=== PATIENT | female | born 1935 | race Caucasian/White ===

== ENCOUNTER 2020-03-12 12:33 | Observation (INO) | payer MEDICARE ==
[2020-03-12] VITALS (8 sets, daily range): BP systolic 152–182; BP diastolic 60–90
[~2020-03-12] VITALS: Ht 162.5 cm; Wt 95.3 kg
--- NOTE | 2020-03-12 13:10 | NUR ---
PATIENT DENIES WOUNDS. A&OX4.
[2020-03-12 13:26] LABS: BASO % 0.5 % (0.0-1.0); EOS % 0.5 % (1.0-4.0); HEMATOCRIT 44.3 % (37.0-47.0); LYMPH # 1.2 10*3/uL (1.3-4.4); LYMPH % 13.9 % (27.0-41.0); MEAN CELL VOLUME 93.7 fl (81.0-99.0); MEAN CORPUSCULAR HGB 30.7 pg (27.0-31.0); MEAN CORPUSCULAR HGB CONC 32.7 g/dl (33.0-37.0); MEAN PLATELET VOLUME 10.6 fl (9.6-12.3); MONO # 0.5 10*3/uL (0.1-1.0); MONO % 5.9 % (3.0-9.0); NEUT # 6.9 10*3/uL (2.3-7.9); PLATELET COUNT AUTOMATED 253 10*3/uL (130-400); RED BLOOD COUNT 4.73 10*6/uL (4.10-5.10); RED CELL DISTRI WIDTH 13.5 % (0-14.5); WHITE BLOOD COUNT 8.7 10*3/uL (4.8-10.8)
[2020-03-12 13:41] LABS: ACT PARTIAL THROMBO TIME 29.9 SECONDS (20.0-32.1)
[2020-03-12 13:58] LABS: ALBUMIN 3.7 gm/dl (3.1-4.5); ALKALINE PHOSPHATASE 91 U/L (45-117); BUN 16 mg/dl (7-24); CHLORIDE 107 mmol/L (98-107); CREATININE 0.79 mg/dL (0.55-1.02); LIPASE 229 U/L (73-393); POTASSIUM 4.3 mmol/L (3.5-5.1); SGOT/AST 16 IU/L (3-35); SGPT/ALT 19 U/L (12-78); SODIUM 139 mmol/L (136-145); TOTAL PROTEIN 8.2 gm/dL (6.4-8.2); TROPONIN I < 0.015 ng/ml (<0.045)
--- NOTE | 2020-03-12 15:28 | NUR ---
PATIENT URINATED BUT LEFT SPECIMEN IN RESTROOM. SPECIMEN HAS BEEN PUT IN BIOHAZARD DUE TO THIS AND ANOTHER SPECIMEN BEING IN RESTROOM.
--- NOTE | 2020-03-12 15:28 | NUR ---
REPORT GIVEN TO HAO OLVERA AT THIS TIME.
[2020-03-12 16:43] LABS: BILIRUBIN NEGATIVE; BLOOD NEGATIVE (NEGATIVE); CLARITY CLEAR (CLEAR); COLOR YELLOW (YELLOW); GLUCOSE NEGATIVE; KETONE 1+; LEUKO ESTERASE TRACE (NEGATIVE); NITRITE NEGATIVE (NEGATIVE); UROBILINOGEN 0.2 E.U./dl (0.0-1.0)
[2020-03-12 16:44] LABS: BACTERIA TRACE; EPITHELIAL CELLS 0-2; RBC 0-2 rbc/hpf (0-2); WBC 0-2 wbc/hpf (0-5)
--- NOTE | 2020-03-12 17:49 | NUR ---
PT ASSISTED TO BATHROOM
--- NOTE | 2020-03-12 18:04 | NUR ---
SPOKE WITH SON FOR AN UPDATE HE HAD BEEN TOLD BY HIS MOTHER SHE WAS BEING ADMITTED.
--- NOTE | 2020-03-12 18:30 | NUR ---
A 84, admitted to 5E, under the services of LISANDRO Anderson DO with a diagnosis of HYPERTENSIVE EMERGENCY. Chief complaint is HIGH BP. Patient arrived via stretcher from ER. Monitor applied. Initial assessment completed. Vital signs taken and recorded. LISANDRO ANDERSON DO notified of admission to the unit. Orders received. See assessment for past medical history, medications and allergies. Patient and/or family oriented to unit. [facility] 5TH FLOOR visitation policy reviewed. Clothing/patient valuable form completed. TOAN TERRELL
[2020-03-12] MEDS ORDERED: VERAPAMIL HCL240 M1 PO (19:12)
[2020-03-12] MEDS ORDERED: LISINOPRIL20 MG PO (19:13)
--- NOTE | 2020-03-12 19:38 | NUR ---
NOTIFIED DR. PÉREZ PATIENTS MED REC IS UP TO DATE AND BP. ALSO PATIENT REQUESTING A DOSE OF ZYRTEC NOW. NOTIFIFED
--- NOTE | 2020-03-12 20:55 | NUR ---
NOTIFIED DR. HOROWITZ PATIENT IS CLAIMING HE FELL. HIT HIS RIGHT KNEE. PATIENT STILL HALLUCINATING AND PARANOID. PATIENT MOVED CLOSER TO THE DESK, 509. BED IN LOWEST POSITION,CALL LIGHT WITHIN REACH. BED RAILS UP X2 AND BED ALARM ON. WILL CONTINUE TO MONITOR.
--- NOTE | 2020-03-12 22:50 | NUR ---
24 HOUR CHART CHECK COMPLETE
--- NOTE | 2020-03-12 23:00 | NUR ---
PATIENT REPORT RECEIVED FROM TOAN PATTERSON RN AT THIS TIME. ASSUMED CARE OF PATIENT AT THIS TIME. PATIENT DENIES ANY PAIN OR DISCOMFORT AT THIS TIME. A&O X3, CALL LIGHT WITHIN REACH. WILL CONTINUE TO MONITOR.
[2020-03-13] VITALS: BP 170/82
--- NOTE | 2020-03-13 04:15 | NUR ---
PATIENT RESTING IN BED IN A POSITION OF COMFORT AT THIS TIME, NO SIGNS OR SYMPTOMS OF PAIN OR DISTRESS NOTED AT THIS TIME. RESPIRATIONS EASY AND NON-LABORED. CALL LIGHT WITHIN REACH, WILL CONTINUE TO MONITOR.
[2020-03-13 06:40] LABS: BASO % 0.5 % (0.0-1.0); EOS # 0.1 10*3/uL (0.0-0.4); EOS % 1.8 % (1.0-4.0); HEMATOCRIT 46.5 % (37.0-47.0); LYMPH # 1.5 10*3/uL (1.3-4.4); MEAN CORPUSCULAR HGB 30.2 pg (27.0-31.0); MEAN CORPUSCULAR HGB CONC 32.5 g/dl (33.0-37.0); MEAN PLATELET VOLUME 10.4 fl (9.6-12.3); MONO # 0.6 10*3/uL (0.1-1.0); MONO % 8.8 % (3.0-9.0); NEUT # 4.9 10*3/uL (2.3-7.9); NEUT % 67.8 % (47.0-73.0); PLATELET COUNT AUTOMATED 257 10*3/uL (130-400); RED CELL DISTRI WIDTH 13.4 % (0-14.5); WHITE BLOOD COUNT 7.3 10*3/uL (4.8-10.8)
[2020-03-13 06:58] LABS: ALBUMIN 3.6 gm/dl (3.1-4.5); ALKALINE PHOSPHATASE 94 U/L (45-117); BUN 13 mg/dl (7-24); CHLORIDE 106 mmol/L (98-107); CHOLESTEROL 207 mg/dL (<200); HDL CHOLESTEROL 44 mg/dl (40-60); LDL CHOLESTEROL 145 mg/dL (9-159); SGOT/AST 17 IU/L (3-35); SGPT/ALT 19 U/L (12-78); SODIUM 138 mmol/L (136-145); TRIGLYCERIDES 91 mg/dl (<150); VLDL CHOLESTEROL 18 mg/dL (6-40)
[2020-03-13 08:00] VITALS: BP 168/62
--- NOTE | 2020-03-13 08:00 | NUR ---
Neurological: awake,alert,oriented Respiratory: easy, regular,no distress Breath sounds: clear Cough: none Cardiovascular: hypertensive Gastrointestinal: soft Genito/Urinary: no problem Musculoskeketal: AMBULATORY PUPILS ARE DILATED BUT REACTIVE AMAN HINOJOSA
[2020-03-13 08:06] LABS: VITAMIN D, 25-HYDROXY 26.6 ng/mL (30-100)
--- NOTE | 2020-03-13 09:00 | NUR ---
Residential Care Facility Manager in to talk to patient. Patient states lives at home with alone. There are 27 steps in the home. Physician: mirela ortiz in [place] Pharm[facility]: [facility] Home health services: none Patient's level of ADLs: INDEPENDENT Patient has working utilities: all working DME: cane Follow-up physician's appointment after d/c[facility] Does patient want to access PORTAL?: no Discharge plan discussed with patient, she states she lives at home alone, is independent in adls and ambulation, drives, has a cane to use if needed. discussed with her a discharge plan and she stated she would be returning home and denies any home needs, discussed [facility] and educated her on the services they offer, she declined any home needs or home health at this time, case management will follow. VANESA VALERO
--- NOTE | 2020-03-13 10:56 | NUR ---
DR ROBERT NOTIFIED THAT PT IS REQUESTING SOMETHING TOPICAL FOR LEFT SHOULDER PAIN. NEW ORDERS RECEIVED. PT NOTIFIED AND IS CURRENTLY HAVING ECHO COMPLETED AT BEDSIDE. WILL MEIDCATE WITH TYLENOL AFTER ECHO IS COMPLETED.
--- NOTE | 2020-03-13 11:04 | NUR ---
Dr. COOPER consulted for CARDIAC. CALL OFFICE AND NOTIFIED OF CONSULT. AMAN HINOJOSA
--- NOTE | 2020-03-13 11:43 | NUR ---
PT GIVEN TYLENOL 650 MG PO AT THIS TIME FOR C/O LEFT SHOULDER PAIN. PHYSICIANS AWARE OF SHOULDER PAIN. WILL MONITOR FOR EFFECTIVENESS. CALL LIGHT IN REACH.
[2020-03-13 12:00] VITALS: BP 144/67
--- NOTE | 2020-03-13 12:42 | NUR ---
PT STATES THAT TYLENOL IS EFFECTIVE FOR SHOULDER PAIN.
[2020-03-13 16:00] VITALS: BP 127/50
--- NOTE | 2020-03-13 18:00 | NUR ---
PT SITTING UP IN BED, EATING DINNER. NO S/S OF DISTRESS NOTED. RESPIRATIONS UNLABORED ON ROOM AIR. ALL NEEDS ARE CURRENTLY MET. PT GIVEN PRUNE JUICE FOR HER REQUEST TO ASSIST IN HAVING A BOWEL MOVEMENT, SHE USUALLY HAS A BOWEL MOVEMENT DAILY. WILL MONITOR. CALL LIGHT IN REACH.
[2020-03-13 20:00] VITALS: BP 126/58
[2020-03-14] VITALS: BP 122/45
--- NOTE | 2020-03-14 03:07 | NUR ---
24 HOUR CHART CHECK COMPLETE
[2020-03-14 06:27] LABS: CHLORIDE 103 mmol/L (98-107); POTASSIUM 4.6 mmol/L (3.5-5.1); SODIUM 135 mmol/L (136-145)
[2020-03-14 06:33] LABS: BUN 27 mg/dl (7-24)
--- NOTE | 2020-03-14 07:30 | NUR ---
TOOK OVER CARE OF PT AT THIS TIME. PT RESTING IN BED. RESPIRATIONS UNLABORED ON ROOM AIR. NO S/S OF DISTRESS NOTED. CALL LIGHT IN REACH.
[2020-03-14 08:00] VITALS: BP 137/61
--- NOTE | 2020-03-14 08:09 | NUR ---
PT OFF OF FLOOR AT THIS TIME FOR RENAL ULTRASOUND.
--- NOTE | 2020-03-14 10:14 | NUR ---
NOTIFIED DR CHEN THAT PT WOULD LIKE TO SHOWER. ORDERS RECEIVED TO D/C HEART MONTIOR AND PHYSICIAN STATES THAT IT IS OKAY FOR PT TO SHOWER.
[2020-03-14 12:00] VITALS: BP 159/75
[2020-03-14] MEDS ORDERED: AMLODIPINE BESYL5 MG PO (13:25)
--- NOTE | 2020-03-14 14:05 | NUR ---
Discharge instructions reviewed with patient/family. Patient receptive and verbalizes understanding. Follow-up care arranged. Written instructions given to patient/family. KRISTAL BOGGS
--- NOTE | 2020-03-14 14:15 | NUR ---
PT LEAVES FACILITY AT THIS TIME VIA W/C TO SON'S CAR. PT TO COMMERCIAL LITIGATION PARALEGAL MEDICATION IN OUTPATIENT PHARMACY.
== END 2020-03-14 14:15 | disposition home or self-care (01) ==
LOC: ED → EDHOLD 16:10 → 5E 17:21
PROVIDERS: Emergency Medicine; Hospitalist; Internal Medicine; ADMIT Internal Medicine; ATTEND Internal Medicine
DX: I16.1 Hypertensive emergency (principal); I10 Essential (primary) hypertension; R51 Headache; J01.10 Acute frontal sinusitis, unspecified; R79.82 Elevated C-reactive protein (CRP); E78.5 Hyperlipidemia, unspecified; E55.9 Vitamin D deficiency, unspecified; E66.9 Obesity, unspecified

== ENCOUNTER → 2020-11-26 | Outpatient (CLI) | payer MEDICARE, OTHER ==
[~2020-11-26] MED LIST: AMLODIPINE BESYL5 MG PO; LISINOPRIL20 MG PO; VERAPAMIL HCL240 M1 PO
[2020-11-26 08:23] LABS: HEMATOCRIT 46.7 % (37.0-47.0); MEAN CELL VOLUME 94.3 fl (81.0-99.0); MEAN CORPUSCULAR HGB 30.7 pg (27.0-31.0); MEAN CORPUSCULAR HGB CONC 32.5 g/dl (33.0-37.0); MEAN PLATELET VOLUME 10.8 fl (9.6-12.3); RED BLOOD COUNT 4.95 10*6/uL (4.10-5.10); WHITE BLOOD COUNT 7.9 10*3/uL (4.8-10.8)
[2020-11-26 08:39] LABS: ALBUMIN 3.6 gm/dl (3.1-4.5); ALKALINE PHOSPHATASE 93 U/L (45-117); BUN 18 mg/dl (7-24); CHLORIDE 107 mmol/L (98-107); CHOLESTEROL 200 mg/dL (<200); FREE T4 1.22 ng/dl (0.76-1.46); LDL CHOLESTEROL 133 mg/dL (9-159); POTASSIUM 4.4 mmol/L (3.5-5.1); SGOT/AST 20 IU/L (3-35); SGPT/ALT 24 U/L (12-78); SODIUM 139 mmol/L (136-145); TOTAL PROTEIN 8.2 gm/dL (6.4-8.2); TRIGLYCERIDES 116 mg/dl (<150)
[2020-11-26 09:17] LABS: VITAMIN D, 25-HYDROXY 49.3 ng/mL (30-100)
== END | disposition home or self-care (01) ==
LOC: LAB 07:44
PROVIDERS: ATTEND Family Medicine
DX: I10 Essential (primary) hypertension (principal); E78.00 Pure hypercholesterolemia, unspecified; R53.83 Other fatigue; E55.9 Vitamin D deficiency, unspecified; J32.9 Chronic sinusitis, unspecified

== ENCOUNTER 2021-01-28 13:48 | Emergency (ER) | payer MEDICARE, OTHER ==
[~2021-01-28] VITALS: Ht 149.8 cm; Wt 90.7 kg
[2021-01-28 14:35] LABS: BASO % 0.3 % (0.0-1.0); EOS % 0.2 % (1.0-4.0); HEMATOCRIT 43.8 % (37.0-47.0); LYMPH # 1.3 10*3/uL (1.3-4.4); LYMPH % 15.1 % (27.0-41.0); MEAN CORPUSCULAR HGB 30.4 pg (27.0-31.0); MEAN CORPUSCULAR HGB CONC 32.6 g/dl (33.0-37.0); MEAN PLATELET VOLUME 10.6 fl (9.6-12.3); MONO # 0.5 10*3/uL (0.1-1.0); MONO % 6.1 % (3.0-9.0); NEUT # 6.8 10*3/uL (2.3-7.9); PLATELET COUNT AUTOMATED 265 10*3/uL (130-400); RED BLOOD COUNT 4.71 10*6/uL (4.10-5.10); RED CELL DISTRI WIDTH 13.3 % (0-14.5); WHITE BLOOD COUNT 8.7 10*3/uL (4.8-10.8)
[2021-01-28 14:52] LABS: BUN 17 mg/dl (7-24); CHLORIDE 105 mmol/L (98-107); CREATININE 0.89 mg/dL (0.55-1.02); POTASSIUM 3.8 mmol/L (3.5-5.1); SODIUM 131 mmol/L (136-145)
[2021-01-28 14:53] LABS: TROPONIN I < 0.015 ng/ml (<0.045)
== END 2021-01-28 15:12 | disposition home or self-care (01) ==
LOC: ED 13:48
PROVIDERS: Emergency Medicine
DX: R20.2 Paresthesia of skin (principal); R20.0 Anesthesia of skin; I10 Essential (primary) hypertension; E78.5 Hyperlipidemia, unspecified; E66.9 Obesity, unspecified; Z79.899 Other long term (current) drug therapy; Z90.711 Acquired absence of uterus with remaining cervical stump; Z90.49 Acquired absence of other specified parts of digestive tract; Z96.659 Presence of unspecified artificial knee joint